=== PATIENT | female | born 1975 | race Hispanic/Latino ===

== ENCOUNTER → 2023-05-04 | Outpatient (CLI) | payer BC ==
[2023-05-04 12:19] LABS: PLATELET FUNCTION ANALYSIS ADP 74 SEC (62-100); PLATELET FUNCTION ANALYSIS EPI 114 SEC (55-192)
[2023-05-04 12:22] LABS: HEMATOCRIT 41.2 % (36-48); PLATELET COUNT (AUTO) 403 K/uL (130-400)
== END | disposition home or self-care (01) ==
LOC: LAB 10:41
PROVIDERS: ATTEND Internal Medicine Medical Oncology
DX: D68.9 Coagulation defect, unspecified (principal)
CPT/HCPCS: 36415; 85576